=== PATIENT | male | born 1970 ===

== ENCOUNTER 2020-06-23 18:20 | Emergency (ER) | payer BC ==
[~2020-06-23] VITALS: Ht 170.2 cm; Wt 79.0 kg
[2020-06-23 18:28] VITALS: BP 123/72
== END 2020-06-23 19:23 | disposition left against medical advice (07) ==
LOC: ER 18:22
DX: F41.9 Anxiety disorder, unspecified (principal); R42 Dizziness and giddiness
CPT/HCPCS: 93005